=== PATIENT | male | born 1990 | race Caucasian/White ===

== ENCOUNTER 2020-03-13 09:40 | Inpatient (IN) | payer MEDICAID, OTHER ==
[~2020-03-13] VITALS: Ht 165.1 cm; Wt 57.1 kg
[2020-03-13 11:25] LABS: BASOPHILS % (AUTO) 0.5 % (0.0-2.0); EOSINOPHILS % (AUTO) 2.1 % (1.0-6.0); HEMATOCRIT 38.9 % (41-53); HEMOGLOBIN 13.2 g/dL (13.5-17.5); LYMPHOCYTES # (AUTO) 1.2 K/uL (1.0-4.8); LYMPHOCYTES % (AUTO) 24.7 % (22.0-44.0); MEAN CORPUSCULAR HEMOGLOBIN 31.9 pg (26.0-34.0); MEAN CORPUSCULAR HGB CONC 33.9 G/dL (31.0-37.0); MEAN CORPUSCULAR VOLUME 94 fL (80-100); MONOCYTES # (AUTO) 0.4 K/uL (0.1-1.0); MONOCYTES % (AUTO) 8.5 % (2.0-9.0); NEUTROPHILS # (AUTO) 3.1 K/uL (1.8-7.7); NEUTROPHILS % (AUTO) 64.2 % (40.0-70.0); PLATELET COUNT (AUTO) 150 K/uL (150-450); RED BLOOD CELL COUNT(AUTO) 4.12 MIL/uL (4.50-5.90); RED CELL DISTRIBUTION WIDTH 13.9 % (11.5-14.5)
[2020-03-13 11:38] LABS: ANION GAP 9 mmol/L (8-16); CALCIUM, TOTAL 8.1 mg/dL (8.8-10.5); CARBON DIOXIDE 24 mmol/L (22-29); CHLORIDE 107 mmol/L (98-107); CREATININE 0.92 mg/dL (0.60-1.30); GLOMERULAR FILTR. RATE CALC > 60 mL/min (>60); GLUCOSE,RANDOM 85 mg/dL (70-110); POTASSIUM 4.6 mmol/L (3.5-5.1); SODIUM SERUM 140 mmol/L (136-145); UREA NITROGEN, BLOOD 11 mg/dL (7-18)
[2020-03-13 11:47] LABS: ALANINE AMINOTRANSFERASE 34 U/L (12-78); ALBUMIN 3.2 g/dL (3.4-5.0); ALKALINE PHOSPHATASE 76 U/L (46-116); ASPARTATE AMINOTRANSFERASE 31 U/L (15-37); BILIRUBIN,TOTAL 0.3 mg/dL (0.1-1.0); TOTAL PROTEIN, SERUM 6.4 g/dL (6.4-8.2)
[2020-03-13] MEDS ORDERED: ZOLPIDEM TARTRATE 10 MG TABLET PO PRN (12:00)
[2020-03-13 13:49] VITALS: BP 112/72
[2020-03-13 16:01] VITALS: BP 109/60
[2020-03-14 08:00] VITALS: BP 107/65
[2020-03-14 16:00] VITALS: BP 124/69
[2020-03-14] MEDS: QUEtiapine FUMARATE 100 MG TABLET PO SCH (20:00)
[2020-03-15 08:00] VITALS: BP 101/52
[2020-03-15] MEDS: FLUoxetine HCL 20 MG CAPSULE PO SCH (08:58)
[2020-03-15 16:30] VITALS: BP 103/64
[2020-03-15] MEDS: QUEtiapine FUMARATE 100 MG TABLET PO SCH (20:30)
[2020-03-16 09:00] VITALS: BP 95/53
[2020-03-16] MEDS: FLUoxetine HCL 20 MG CAPSULE PO SCH (10:18)
[2020-03-16] MEDS: LORazepam 2 MG TABLET PO PRN ×2 (10:18→17:00)
[2020-03-16 16:15] VITALS: BP 116/65
[2020-03-16] MEDS: QUEtiapine FUMARATE 100 MG TABLET PO SCH (20:13)
[2020-03-17] MEDS: FLUoxetine HCL 20 MG CAPSULE PO SCH (07:54)
[2020-03-17] MEDS: LORazepam 2 MG TABLET PO PRN ×2 (07:54→15:42)
[2020-03-17 09:19] VITALS: BP 112/73
[2020-03-17] MEDS: QUEtiapine FUMARATE 100 MG TABLET PO SCH (20:30)
[2020-03-17 22:16] VITALS: BP 116/65
[2020-03-18] MEDS: LORazepam 2 MG TABLET PO PRN ×2 (07:48→16:01)
[2020-03-18] MEDS: FLUoxetine HCL 20 MG CAPSULE PO SCH (07:48)
[2020-03-18 09:12] VITALS: BP 101/61
[2020-03-18 16:00] VITALS: BP 101/66
[2020-03-18] MEDS: QUEtiapine FUMARATE 100 MG TABLET PO SCH (20:14)
[2020-03-19 05:35] VITALS: BP 112/71
[2020-03-19] MEDS: FLUoxetine HCL 20 MG CAPSULE PO SCH (09:02)
[2020-03-19] MEDS: LORazepam 2 MG TABLET PO PRN ×2 (09:31→16:26)
[2020-03-19 09:36] VITALS: BP 108/64
[2020-03-19 16:00] VITALS: BP 108/63
[2020-03-19] MEDS: HALOPERIDOL 5 MG TABLET PO PRN (16:26)
[2020-03-19] MEDS: QUEtiapine FUMARATE 100 MG TABLET PO SCH (21:13)
[2020-03-20] MEDS: HALOPERIDOL 5 MG TABLET PO PRN (09:38)
[2020-03-20] MEDS: FLUoxetine HCL 20 MG CAPSULE PO SCH (09:38)
[2020-03-20] MEDS: LORazepam 2 MG TABLET PO PRN (09:38)
[2020-03-20 09:39] VITALS: BP 93/57
[2020-03-20 18:03] VITALS: BP 96/60
[2020-03-20] MEDS: QUEtiapine FUMARATE 100 MG TABLET PO SCH (20:05)
[2020-03-21] MEDS: FLUoxetine HCL 20 MG CAPSULE PO SCH (09:22)
[2020-03-21] MEDS: HALOPERIDOL 5 MG TABLET PO PRN ×2 (09:22→17:51)
[2020-03-21] MEDS: LORazepam 2 MG TABLET PO PRN ×2 (09:22→17:51)
[2020-03-21 09:39] VITALS: BP 100/58
[2020-03-21 16:00] VITALS: BP 93/65
[2020-03-21] MEDS: QUEtiapine FUMARATE 100 MG TABLET PO SCH (20:40)
[2020-03-22] MEDS: FLUoxetine HCL 20 MG CAPSULE PO SCH (09:36)
[2020-03-22] MEDS: LORazepam 2 MG TABLET PO PRN ×2 (09:36→15:51)
[2020-03-22] MEDS: HALOPERIDOL 5 MG TABLET PO PRN ×2 (09:36→15:51)
[2020-03-22 10:29] VITALS: BP 93/59
[2020-03-22 16:00] VITALS: BP 102/67
[2020-03-22] MEDS: QUEtiapine FUMARATE 100 MG TABLET PO SCH (20:58)
[2020-03-23 08:00] VITALS: BP 101/63
[2020-03-23] MEDS: FLUoxetine HCL 20 MG CAPSULE PO SCH (09:50)
[2020-03-23] MEDS: HALOPERIDOL 5 MG TABLET PO PRN ×2 (09:51→16:13)
[2020-03-23] MEDS: LORazepam 2 MG TABLET PO PRN ×2 (09:51→16:13)
[2020-03-23] MEDS ORDERED: QUET100T PO (14:32)
[2020-03-23] MEDS ORDERED: FLUO-191 PO (14:32)
[2020-03-23 16:20] VITALS: BP 109/65
[2020-03-23] MEDS: QUEtiapine FUMARATE 100 MG TABLET PO SCH (20:25)
== END 2020-03-24 08:00 | disposition home or self-care (01) | DRG 885 ==
LOC: EMS 09:47 → 3EI 11:56 → UNDOADMIN 13:03 → 3EI 13:03
PROVIDERS: ADMIT Psychiatry & Neurology Child & Adolescent Psychiatry; ATTEND Psychiatry & Neurology Child & Adolescent Psychiatry
DX: F33.2 Major depressive disorder, recurrent severe without psychotic features (principal); F10.239 Alcohol dependence with withdrawal, unspecified; F23 Brief psychotic disorder; G93.40 Encephalopathy, unspecified; Z91.19 Patient's noncompliance with other medical treatment and regimen; E83.51 Hypocalcemia; D64.9 Anemia, unspecified; Z59.0 Homelessness
CPT/HCPCS: G0480